=== PATIENT | male | born 1970 | race Hispanic/Latino ===

== ENCOUNTER 2020-04-21 16:17 | Emergency (ER) | payer SELFPAY ==
[~2020-04-21] VITALS: Ht 157.5 cm; Wt 81.6 kg
[2020-04-21] MEDS ORDERED: SODIUM CHLORIDE 0.9% 1000ML 1,000 ML IV STA ×2 (16:41)
[2020-04-21] MEDS ORDERED: AZITHROMYCIN 500MG/NS 250 ML 250 ML IV STA (16:41)
[2020-04-21] MEDS ORDERED: ASPIRIN 81 MG CHEW TAB PO NR (17:00)
--- NOTE | 2020-04-21 17:23 | Diagnostic Imaging Report ---
EXAMINATION: CHEST SINGLE (PORTABLE) INDICATION: ^Y ^ERMD ORDER ^[id number] ^[id number] ^Y COMPARISON: None FINDINGS: AP view TUBES and LINES: None. LUNGS: Limited by body habitus. Lungs are well inflated. Central peribronchial cuffing. PLEURA: No pleural effusion or pneumothorax. HEART AND MEDIASTINUM: The cardiomediastinal silhouette is unremarkable. BONES AND SOFT TISSUES: No acute osseous lesion. Soft tissues are unremarkable. UPPER ABDOMEN: No free air under the diaphragm. IMPRESSION: Central peribronchial cuffing. Underlying pneumonia cannot be excluded in the appropriate clinical context. Signed by: Dr. Peewee Doe MD on 04/21/2020 5:20 PM
[2020-04-21] MEDS ORDERED: CEFTRIAXONE SOD 1 GM/NS 50 ML 50 ML IV ONE (18:00)
[2020-04-21] MEDS ORDERED: DEXAMETHASONE SOD PHOS 10 MG/1 ML VIAL IV NR (18:00)
[2020-04-21 18:01] LABS: BASOPHILS # (AUTO) 0.1 (0.0-0.1); BASOPHILS % 0.9 % (0.0-1.0); EOSINOPHILS # (AUTO) 0.2 (0.0-0.4); EOSINOPHILS % 2.3 % (0.0-6.0); HEMATOCRIT 48.9 % (38.2-49.6); HEMOGLOBIN 16.5 g/dL (14.0-18.0); LYMPHOCYTES # (AUTO) 2.3 (1.0-3.2); LYMPHOCYTES % 23.1 % (18.0-39.1); MEAN CORPUSCULAR HEMOGLOBIN 29.4 pg (28-32); MEAN CORPUSCULAR HGB CONC 33.7 g/dL (31-35); MONOCYTES # (AUTO) 0.9 (0.2-0.8); MONOCYTES % 9.1 % (4.4-11.3); NEUTROPHILS # (AUTO) 6.3 (2.1-6.9); NEUTROPHILS % 64.2 % (38.7-80.0); PLATELET COUNT 246 x10e3/uL (140-360); RED BLOOD COUNT 5.62 x10e6/uL (4.3-5.7); RED CELL DISTRIBUTION WIDTH 13.1 % (11.7-14.4)
--- NOTE | 2020-04-21 18:10 | Emergency Department Note ---
History of Present Illnes History of Present Illness Chief Complaint: COVID PUI History of Present Illness This is a 49 year old male . 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, See EMS Report Tie Worker Required: No Onset (how long ago): day(s) (1) Location: chest Quality: pain Radiation: Reports non-radiation Severity: moderate Onset quality: gradual Duration (how long): day(s) (1) Timing of current episode: constant Progression: unchanged Chronicity: new Context: Denies recent illness, Denies recent surgery, Denies recent immobilization, Denies recent travel, Denies trauma/injury, Denies new medications, Denies hx of DVT/PE, Denies non-compliance w/ medications, Denies other Relieving factors: none Exacerbating factors: movement Associated symptoms: Reports denies other symptoms Treatments prior to arrival: none (VIDAL STEWART) Past Medical/Family History Physician Review I have reviewed the patient's past medical and family history. Any updates have been documented here. (VIDAL STEWART) Past Medical History Recent Fever: No Clinical Suspicion of Infectio: No New/Unexplained Change in Ment: No (VIDAL STEWART) Social History Any Illegal Drug Use: No TB Exposure/Symptoms: No Physically hurt or threatened: No (VIDAL STEWART) Family History Family history of heart diseas: No (VIDAL STEWART) Other Any Pre-Existing Lines (PICC,: No Is patient up to date on immun: Yes (VIDAL STEWART) Review of Systems ROS Narrative SOB X 2 DAYS. COUGH X 5 DAYS AND PAIN WITH COUGH. AAOX4. 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 SATS 96% ROOM AIR. SOB. (VIDAL STEWART) Review of Systems Constitutional: Reports no symptoms EENTM: Reports no symptoms Cardiovascular: Reports chest pain Respiratory: Reports no symptoms Gastrointestinal: Reports no symptoms Genitourinary: Reports no symptoms Musculoskeletal: Reports no symptoms Integumentary: Reports no symptoms Neurological: Reports no symptoms Psychological: Reports no symptoms Endocrine: Reports no symptoms Hematological/Lymphatic: Reports no symptoms (VIDAL STEWART) Physical Exam Related Data Allergies: Coded Allergies: No Known Allergies (Unverified , 04/21/20) Triage Vital Signs Vital Signs Date Time Temp Pulse Resp B/P (MAP) Pulse Ox O2 Delivery O2 Flow Rate FiO2 04/21/20 16:19 98.3 121 24 145/99 96 Room Air Vital signs reviewed: Yes (VIDAL STEWART) Physical Exam CONSTITUTIONAL Constitutional: Present well-developed, Present well-nourished HENT HENT: Present normocephalic, Present atraumatic, Present oropharynx clear/moist, Present nose normal HENT L/R: Present left ext ear normal, Present right ext ear normal EYES Eyes: Reports PERRL, Reports conjunctivae normal NECK Neck: Present ROM normal PULMONARY Pulmonary: Present effort normal, Present breath sounds normal CARDIOVASCULAR Cardiovascular: Present regular rhythm, Present heart sounds normal, Present capillary refill normal, Present tachycardia GASTROINTESTINAL Abdominal: Present soft, Present nontender, Present bowel sounds normal GENITOURINARY Genitourinary: Present exam deferred SKIN Skin: Present warm, Present dry MUSCULOSKELETAL Musculoskeletal: Present ROM normal NEUROLOGICAL Neurological: Present alert, Present oriented x 3, Present no gross motor or sensory deficits PSYCHOLOGICAL Psychological: Present mood/affect normal, Present judgement normal (VIDAL STEWART) Results Laboratory Lab results reviewed: Yes (VIDAL STEWART) Imaging Imaging results reviewed: Yes (VIDAL STEWART) Imaging results reviewed: Yes Impressions CT CHEST PE PROTOCOL IMPRESSION: Extensive saddle pulmonary embolism with signs of right heart strain. Findings discussed with Dr. Marroquin at 8:00 PM, on 04/21/2020. Signed by: Dr. Peewee Villarreal MD on 04/21/2020 7:59 PM Dictated By: PEEWEE VILLARREAL MD 58 Transcribed By: VIRGIE on 04/21/201958 (NILES MARROQUIN MD) Procedures 12 Lead ECG Interpretation ECG Interpretation : ECG: ECG 1 Date: Apr 21, 2020 Time: 18:00 Prior ECG tracings: reviewed Rhythm: sinus tachycardia Rate: tachycardia BPM: 114 Clinical Impression: normal ECG (VIDAL STEWART) Assessment & Plan Medical Decision Making MDM blood work, CXR, to R/O pneumonia or infection IVF and antibiotics IV given Patinet feeling better. Discussed DC treatment plan and need to FU with PCP. All questions answered (VIDAL STEWART) Reassessment Reassessment time: 18:09 Reassessment Awaiting all results, Patient in NAD (VIDAL STEWART) Reassessment PT WITH SADDLE PULMONARY EMBOLUS ON CR CHEST I SPOKE WITH DR LINDA (THORACIC SURGEON), HE WANTS PT TRANSFERRED TO [facility] CVICU FOR PULMONARY THROMBECTOMY. (NILES MARROQUIN MD) Assessment & Plan Final Impression: (1) Tachycardia (2) Cough in adult (3) Non-cardiac chest pain (4) Suspected 2019-nCoV infection (VIDAL STEWART) Depart Disposition: HOME, SELF-CARE Last Vital Signs Date Time Temp Pulse Resp B/P (MAP) Pulse Ox O2 Delivery O2 Flow Rate FiO2 04/21/20 16:19 98.3 121 24 145/99 96 Room Air (VIDAL STEWART) VIDAL STEWART Apr 21, 2020 16:44 NILES MARROQUIN MD Apr 21, 2020 20:16
[2020-04-21 18:18] LABS: ALANINE AMINOTRANSFERASE 101 IU/L (0-55); ALBUMIN 3.4 g/dL (3.5-5.0); ALBUMIN/GLOBULIN RATIO 0.9 (0.8-2.0); ALKALINE PHOSPHATASE 58 IU/L (40-150); ANION GAP 17.3 mmol/L (8-16); BLOOD UREA NITROGEN 14 mg/dL (7-26); BUN/CREATININE RATIO 14 (6-25); CALCIUM 8.9 mg/dL (8.4-10.2); CARBON DIOXIDE 21 mmol/L (22-29); CHLORIDE 102 mmol/L (98-107); CREATINE KINASE 127 IU/L (30-200); CREATININE, SERUM 0.98 mg/dL (0.72-1.25); EST GLOMERULAR FILTRATION RATE > 60 ML/MIN (60-); GLUCOSE 313 mg/dL (74-118); POTASSIUM 4.3 mmol/L (3.5-5.1); SODIUM 136 mmol/L (136-145)
[2020-04-21 18:38] LABS: THYROID STIMULATING HORMONE 3.114 uIU/mL (0.350-4.940)
--- NOTE | 2020-04-21 20:03 | Diagnostic Imaging Report ---
EXAM: CT Chest WITH contrast (PE Protocol) INDICATION: ^Y ^PE PROTOCOL ^[id number] ^[id number] ^Y COMPARISON: Same day chest x-ray. TECHNIQUE: Chest was scanned utilizing a multidetector helical scanner from the lung apex through the level of the diaphragm after administration of IV contrast. Thin section reconstructions were obtained with special concentration on the pulmonary arteries. Coronal and sagittal reformations were obtained. Dose modulation, iterative reconstruction, and/or weight based adjustment of the mA/kV was utilized to reduce the radiation dose to as low as reasonably achievable. Pulmonary embolism protocol was performed. IV CONTRAST: 100 mL of Omnipaque 370 COMPLICATIONS: None RADIATION DOSE: Total DLP: 487.84 mGy*cm Estimated effective dose: (DLP x 0.014 x size factor) mSv CTDIvol has been reviewed. It is below the limits set by the Radiation Protocol Committee (RPC). FINDINGS: LINES/ TUBES: None. LUNGS AND AIRWAYS: Diffuse bilateral extensive pulmonary embolism, extending from main pulmonary arteries to the lobar and segmental branches. The lungs are unremarkable. Airways are normal. PLEURA: The pleural spaces are clear. HEART AND MEDIASTINUM: The thyroid gland is normal. No mediastinal, hilar or axillary lymphadenopathy. The heart is normal in size.. There is no pericardial effusion. . Main pulmonary artery measures 3 cm in diameter. Flattening of the interventricular septum, concerning for right heart strain. Reflux of contrast into the IVC and hepatic veins. UPPER ABDOMEN: Unremarkable BONES: The visualized bony thorax is within normal limits. SOFT TISSUES: Unremarkable. IMPRESSION: Extensive saddle pulmonary embolism with signs of right heart strain. Findings discussed with Dr. Nascimento at 8:00 PM, on 04/21/2020. Signed by: Dr. Peewee Doe MD on 04/21/2020 7:59 PM
[2020-04-21] MEDS ORDERED: HEPARIN 25,000 UNIT 1,200 UNIT in DEXTROSE 5% 250ML 250 ML IV SCH (20:15)
[2020-04-21] MEDS ORDERED: HEPARIN SOD (PORCINE) 5,000 UNIT/ML VIAL IV NR (20:15)
--- NOTE | 2020-04-21 20:20 | NUR ---
TX INITIATED FOR THIS PATIENT
[2020-04-21 20:26] LABS: INR 0.98; PROTHROMBIN TIME 13.6 seconds (11.9-14.5)
[2020-04-21 20:27] LABS: PARTIAL THROMBOPLASTIN TIME 24.9 seconds (23.8-35.5)
--- NOTE | 2020-04-21 20:37 | NUR ---
HEPARIN DRIP STARTED AT 1200ML/HR
--- NOTE | 2020-04-21 20:52 | NUR ---
ALL HEPARIN INFUSION DRIPS/ INITIAL DOSAGE BOLUS WERE VERIFIED WITH PHARMACIST GRISELDA
--- NOTE | 2020-04-21 20:57 | NUR ---
ALL BEDSIDE PUMP VERIFICATIONS WERE DONE BY IGNACIO AGUIRRE RN/TASHA Carballo RN
[2020-04-21] MEDS ORDERED: IOPAMIDOL 370 MG/ML 200 ML INFUS..BTL INJ ONE (21:13)
[2020-04-21] MEDS ORDERED: SODIUM CHLORIDE 0.9% 50ML 50 ML ONE (21:13)
== END 2020-04-21 23:18 | disposition other institution (70) ==
LOC: ER 18:20
DX: R07.89 Other chest pain (principal); I26.99 Other pulmonary embolism without acute cor pulmonale; R00.0 Tachycardia, unspecified; R05 Cough; R10.9 Unspecified abdominal pain
CPT/HCPCS: 36415; 71045; 71260; 80053; 82550; 82553; 83735; 83880; 84443; 84484; 85025; 85610; 85730; 87040; 87635; 93005; 99284; J0456; J0696; J1644; J7030; Q9967